=== PATIENT | female | born 1955 | race Hispanic/Latino ===

== ENCOUNTER 2021-01-14 09:49 | Emergency (ER) | payer BC, OTHER ==
[~2021-01-14] VITALS: Ht 149.9 cm; Wt 90.7 kg
[2021-01-14 09:52] VITALS: BP 123/56
== END 2021-01-14 14:27 | disposition left against medical advice (07) ==
LOC: EDH 09:49
DX: R21 Rash and other nonspecific skin eruption (principal); Z53.21 Procedure and treatment not carried out due to patient leaving prior to being seen by health care provider

== ENCOUNTER → 2022-12-03 | Outpatient (CLI) | payer BC | END | disposition home or self-care (01) | LOC: RAH 17:18 | PROVIDERS: ATTEND Family Medicine | DX: I10 Essential (primary) hypertension (principal) | CPT/HCPCS: 71045 ==

== ENCOUNTER 2022-12-17 07:05 | Observation (INO) | payer BC, MEDICARE ==
[2022-12-16 14:13] VITALS: BP 158/73; PULSE 72; RESP 18
[2022-12-16 14:52] LABS: INR 1.03 (0.85-1.15); PROTHROMBIN TIME 11.9 SEC (9.6-11.6)
[2022-12-16 14:53] LABS: PARTIAL THROMBOPLASTIN TIME 31.1 SEC (26.3-35.5)
[2022-12-17] VITALS (29 sets, daily range): BP systolic 119–165; BP diastolic 58–84; PULSE 67–94; RESP 12–20; O2SAT 97–98
[~2022-12-17] VITALS: Ht 149.9 cm; Wt 93.0 kg
[~2022-12-17 07:05] MED LIST: CEFAZOLIN SODIUM 1 GM VIAL IVPB PRN; IBUP-2077 PO; LACTATED RINGERS 1000ML 1,000 ML IV SCH; TIRZ2.5P SQ
[2022-12-17] MEDS ORDERED: 0.9%NACL 1000ML 1,000 ML IV ONE (07:39)
[2022-12-17] MEDS ORDERED: VANCOMYCIN 1G/250ML KIT 250 ML IV ONE (09:32)
[2022-12-17] MEDS ORDERED: TRANEXAMIC ACID 1000MG/10ML ONE (09:52)
[2022-12-17] MEDS ORDERED: SCOPOLAMINE HYDROBROMIDE 1 EACH ADH..PATCH TD ONE (09:53)
[2022-12-17] MEDS ORDERED: PROPOFOL 10 MG/ML 20ML VIAL IV ONE (10:22)
[2022-12-17] MEDS ORDERED: SUCCINYLCHOLINE CHLORIDE 20 MG/ML 10 ML VIAL ONE (10:22)
[2022-12-17] MEDS ORDERED: FENTANYL CITRATE PF 50 MCG/1 ML 2ML VIAL ONE (10:22)
[2022-12-17] MEDS ORDERED: MIDAZOLAM HCL 1 MG/ML 2ML VIAL ONE (10:22)
[2022-12-17] MEDS ORDERED: LIDOCAINE PF 100MG/5ML (2%) SYRINGE 5ML ONE (10:22)
[2022-12-17] MEDS ORDERED: ROCURONIUM 10MG/1ML SYR 10 MG/ML ML ONE (10:23)
[2022-12-17] MEDS ORDERED: DEXAMETHASONE SOD PHOSPHATE 10MG/ML 1ML VIAL ONE (10:47)
[2022-12-17] MEDS: LEVOFLOXACIN 500 MG/D5W 100 ML 100 ML IV SCH ×2 (11:30→11:34)
[2022-12-17] MEDS ORDERED: NEOSTIGMINE 5MG/5ML SYR IV ONE (12:36)
[2022-12-17] MEDS ORDERED: GLYCOPYRROLATE 1 MG/5 ML SYRINGE ONE (12:36)
[2022-12-17] MEDS ORDERED: ONDANSETRON 4MG INJ ONE (12:38)
[2022-12-17] MEDS ORDERED: KCL 20 MEQ ERTAB PO PRN (13:00)
[2022-12-17] MEDS ORDERED: ONDANSETRON 4MG INJ IVP PRN (13:00)
[2022-12-17] MEDS ORDERED: POTASSIUM CHLORIDE 20MEQ/100ML 100 ML IV PRN (13:00)
[2022-12-17] MEDS ORDERED: HYDROCODONE/ACETAMINOPHEN 5/325 MG TAB PO PRN (13:00)
[2022-12-17] MEDS ORDERED: POTASSIUM CHLORIDE 10% ELIXIR 20 MEQ/15 ML UDCUP PO PRN (13:00)
[2022-12-17] MEDS: ACETAMINOPHEN 1,000 MG/100 ML VIAL IV SCH ×2 (13:15→19:59)
[2022-12-17] MEDS ORDERED: MEPERIDINE-PF 25 MG/ML SYG ONE (13:29)
[2022-12-17] MEDS: MORPHINE 4 MG SYG IVP PRN ×2 (15:01→21:29)
[2022-12-17] MEDS: IBUPROFEN 800MG + NS 250ML IV SCH (18:00)
[2022-12-17] MEDS: DOXYCYCLINE 100MG+NS 250ML IV SCH ×2 (18:54→23:00)
[2022-12-17] MEDS: 0.9%NACL 1000ML 1,000 ML IV SCH ×2 (19:56→23:00)
[2022-12-17] MEDS: TRAMADOL HCL 50 MG TABLET PO SCH (19:59)
[2022-12-17] MEDS: FAMOTIDINE 20MG TAB PO SCH (21:05)
[2022-12-18] VITALS (8 sets, daily range): BP systolic 119–140; BP diastolic 52–73; PULSE 65–87; RESP 17–20; O2SAT 97–99
[2022-12-18] MEDS: IBUPROFEN 800MG + NS 250ML IV SCH ×2 (00:46→09:30)
[2022-12-18] MEDS ORDERED: ACETAMINOPHEN 1,000 MG/100 ML VIAL IV ONE (02:32)
[2022-12-18] MEDS: ACETAMINOPHEN 1,000 MG/100 ML VIAL IV SCH (02:33)
[2022-12-18] MEDS: TRAMADOL HCL 50 MG TABLET PO SCH ×4 (02:37→17:01)
[2022-12-18] MEDS: HYDROCODONE/ACETAMINOPHEN 10/325 MG TAB PO PRN ×2 (03:18→21:32)
[2022-12-18 05:11] LABS: HEMATOCRIT 35.8 % (36-48); MEAN CORPUSCULAR HEMOGLOBIN 29.5 pg (27.0-33.0); MEAN CORPUSCULAR HGB CONC 33.5 g/dL (32.0-36.0); RED BLOOD CELL COUNT(AUTO) 4.07 MIL/uL (4.00-5.50); RED CELL DISTRIBUTION WIDTH 13.2 % (11.0-15.5); WHITE BLOOD COUNT (AUTO) 14.4 K/uL (4.8-10.8)
[2022-12-18 05:24] LABS: CREATININE 0.7 mg/dL (0.5-1.5); POTASSIUM 3.8 mmol/L (3.5-5.1)
[2022-12-18] MEDS: FAMOTIDINE 20MG TAB PO SCH ×2 (09:16→21:31)
[2022-12-18] MEDS: POLYETHYLENE GLYCOL 3350 17 GM POWD.PACK PO SCH (09:16)
[2022-12-18] MEDS: ENOXAPARIN SODIUM 30 MG/0.3 ML SQ SCH (09:17)
[2022-12-18] MEDS ORDERED: CALDOLOR 800MG+NS 250ML 250 ML IV STA (09:22)
[2022-12-18] MEDS: DOXYCYCLINE 100MG+NS 250ML IV SCH (10:10)
[2022-12-18] MEDS ORDERED: BISACODYL 10 MG SUPP.RECT RC ONE (21:53)
[2022-12-19] VITALS (7 sets, daily range): BP systolic 130–143; BP diastolic 45–63; PULSE 63–86; RESP 16–20; O2SAT 99–100
[2022-12-19] MEDS: TRAMADOL HCL 50 MG TABLET PO SCH ×4 (00:41→18:00)
[2022-12-19] MEDS: FAMOTIDINE 20MG TAB PO SCH ×2 (08:55→20:48)
[2022-12-19] MEDS: POLYETHYLENE GLYCOL 3350 17 GM POWD.PACK PO SCH (08:55)
[2022-12-19] MEDS: ENOXAPARIN SODIUM 30 MG/0.3 ML SQ SCH (09:04)
[2022-12-19] MEDS: HYDROCODONE/ACETAMINOPHEN 10/325 MG TAB PO PRN ×2 (16:31→20:51)
[2022-12-20 00:23] VITALS: BP 129/63; PULSE 88; RESP 20
[2022-12-20] MEDS: HYDROCODONE/ACETAMINOPHEN 10/325 MG TAB PO PRN ×2 (03:47→08:26)
[2022-12-20 03:55] VITALS: BP 152/74; PULSE 69; RESP 20
[2022-12-20] MEDS: TRAMADOL HCL 50 MG TABLET PO SCH ×3 (05:49→12:12)
[2022-12-20 08:00] VITALS: BP 142/56; PULSE 67; RESP 20; O2SAT 98
[2022-12-20] MEDS: POLYETHYLENE GLYCOL 3350 17 GM POWD.PACK PO SCH (08:15)
[2022-12-20] MEDS: ENOXAPARIN SODIUM 30 MG/0.3 ML SQ SCH (08:15)
[2022-12-20] MEDS: FAMOTIDINE 20MG TAB PO SCH (08:15)
[2022-12-20 11:58] VITALS: BP 127/70; PULSE 67; RESP 20
[2022-12-20] MEDS ORDERED: BISACODYL 10 MG SUPP.RECT RC PRN (13:00)
== END 2022-12-20 15:45 ==
LOC: DAH 07:05 → DAHIP 07:06 → DAH 07:06 → 4AH 14:50
PROVIDERS: ADMIT Orthopaedic Surgery; ATTEND Orthopaedic Surgery
DX: M17.11 Unilateral primary osteoarthritis, right knee (principal); Z20.822 Contact with and (suspected) exposure to COVID-19; E66.9 Obesity, unspecified; Z79.899 Other long term (current) drug therapy; Z68.41 Body mass index [BMI] 40.0-44.9, adult
CPT/HCPCS: 85610; 85730; 87426; 36415 ×2; 87641; 27447; 96376; 96365; 96366 ×4; 96375; 96367 ×2; 96368; 64447; 82948 ×4; 96372 ×3; 80048; 85027; 97161; 97039 ×4; 97116 ×6; 97530 ×3; C1713; G0378 ×71; A4663; J7030 ×2; A4600 ×2; J3010; J3490 ×6; J1100; J2710; J1956; J0330; J2001; J2250; J2704; J2405; J2270 ×2; J3370; J2175; J1741 ×3; A6223; G0168; A4649 ×2; A6212; C1776 ×3; A5120; A4215; A4223; A4222; A4221; J1650 ×3; J0690

== ENCOUNTER → 2024-01-21 | Outpatient (CLI) | payer BC, MEDICARE ==
[~2024-01-21] MED LIST changes: -CEFAZOLIN SODIUM 1 GM VIAL IVPB PRN; -LACTATED RINGERS 1000ML 1,000 ML IV SCH
== END | disposition home or self-care (01) ==
LOC: SHCH 15:31
PROVIDERS: ATTEND Internal Medicine Cardiovascular Disease
DX: I08.3 Combined rheumatic disorders of mitral, aortic and tricuspid valves (principal); R06.02 Shortness of breath; R07.9 Chest pain, unspecified
CPT/HCPCS: 93306

== ENCOUNTER → 2024-05-03 | Outpatient (CLI) | payer OTHER ==
--- NOTE | 2024-05-03 11:16 | HMCIMG ---
CT CORONARY CALCIFICATION SCORING: Anatomic images were reviewed. The calcium score is being generated and reported separately. This report is for the visualized anatomy only. Visualized portions of the lungs are clear. Hilar and mediastinal structures appear normal. Osseous structures are unremarkable. Impression: 1. Negative noncardiac anatomic findings. 2. The calcium score is 0 consistent with absence of calcified plaque. CT was performed with one or more following dose reduction techniques: automated exposure control, adjustment of the mA and kv according to patient's size, or use of a iterative reconstruction technique.
== END | disposition home or self-care (01) ==
LOC: RAH 09:20
PROVIDERS: ATTEND Internal Medicine Cardiovascular Disease
DX: Z13.6 Encounter for screening for cardiovascular disorders (principal)
CPT/HCPCS: 75571